=== PATIENT | male | born 1985 | race Two or more races ===

== ENCOUNTER 2017-02-16 00:17 | Emergency (ER) | payer SELFPAY ==
[~2017-02-16] VITALS: Ht 172.7 cm; Wt 104.3 kg
[2017-02-16 00:23] VITALS: BP 169/88
[2017-02-16 00:55] LABS: Basophils # (auto) 0 uL; Basophils % (auto) 0.2 % (0.0-2.0); Eosinophils # (auto) 0 uL; Hematocrit 50.8 % (41.0-53.0); Hemoglobin 17.2 g/dL (13.5-17.5); Lymphocytes % (auto) 10.6 % (10.0-50.0); Mean Corpuscular Hemoglobin 30.1 pg (28.0-32.0); Mean Corpuscular Hgb Conc. 33.7 g/dL (32.0-36.0); Mean Corpuscular Volume 89.2 fL (80.0-100.0); Mean Platelet Volume 10.3 fL (6.9-10.8); Monocytes % (auto) 10.1 % (0.0-12.0); Neutrophils # (auto) 7.7 uL; Neutrophils % (auto) 79.1 % (37.0-80.0); Platelet Count (auto) 176 10^3/uL (140-450); Red Cell Distribution Width 13.4 % (11.8-14.3); White Blood Cell 9.7 10^3/uL (4.4-10.8)
[2017-02-16 01:04] LABS: Urine RBC None Seen /hpf (0 - 3)
[2017-02-16 01:14] LABS: Albumin 4.1 g/dL (3.4-5.0); BUN/Creatinine Ratio 13.4; Potassium 3.9 mmol/L (3.5-5.1)
[2017-02-16 01:17] LABS: Bilirubin, Total 0.3 mg/dL (0.2-1.0); Total Protein 8.7 g/dL (6.4-8.2)
[2017-02-16 01:21] LABS: Urine Bilirubin Negative (Negative); Urine Blood Negative /uL (Negative); Urine Color PINK (Yellow); Urine Glucose Normal (Normal); Urine Ketone 2+ (Negative); Urine Mucus FEW (None Seen); Urine Nitrite Negative (Negative); Urine Urobilinogen Normal (Negative); Urine pH 5.5 (5.0-8.0)
== END 2017-02-16 01:50 | disposition left against medical advice (07) ==
LOC: ER 00:21
DX: R10.9 Unspecified abdominal pain (principal); R11.2 Nausea with vomiting, unspecified; Z53.21 Procedure and treatment not carried out due to patient leaving prior to being seen by health care provider
CPT/HCPCS: 36415; 74176; 80053; 81001; 82150; 83690; 85025